=== PATIENT | male | born 1980 | race Caucasian/White ===

== ENCOUNTER 2021-02-01 22:22 | Emergency (ER) | payer OTHER, SELFPAY ==
--- NOTE | ~2021-02-01 | XR_ITS ---
EXAMINATION: XR CHEST CLINICAL INFORMATION: Shortness of breath COMPARISON: None TECHNIQUE: Frontal view of the chest was obtained. 11:07 PM FINDINGS: No significant abnormality is noted involving the heart, lungs, mediastinum, bony thorax or soft tissues. XR/XR chest 1V IMPRESSION: Unremarkable examination.
[2021-02-01 22:48] VITALS: BP 141/90; PULSE 109; RESP 16; TEMP 36.9; O2SAT 98; BMI 31.5
[2021-02-02 00:01] LABS: COVID-19 Test Negative (Negative); IDNOW Serial# 08D9AD1C
[2021-02-02 02:00] VITALS: BP 124/81; PULSE 77; RESP 18; O2SAT 99
--- NOTE | 2021-02-02 02:09 | ED.SOB ---
HPI - SOB/Dyspnea General Chief Complaint: Dyspnea Stated Complaint: Covid symptoms Time Seen by Provider: 02/02/21 02:09 Source: patient Mode of arrival: ambulatory Limitations: no limitations History of Present Illness HPI Narrative: wheezing, coughing, phlegm, rhinorrhea for 4 days MD elicited complaint: shortness of breath and cough Onset (ago): day(s) Context: recent illness Timing: constant Severity: mild Related Data Allergies Allergy/AdvReac Type Severity Reaction Status Date / Time Sulfa (Sulfonamide Allergy Unknown SWELLING Unverified 01/27/20 15:21 Antibiotics) [SULFA (SULFONAMIDE ANTIBIOTICS)] Sulfacet-R Allergy Unknown Uncoded 01/18/20 00:00 Review of Systems Constitutional: Constitutional: Reports no additional constitutional complaints Eyes: Eyes: Reports no additional eye complaints ENT: Denies dizziness Cardiovascular: Cardiovascular: Reports no additional cardiovascular complaints Respiratory: Respiratory: Reports as per HPI Gastrointestinal: Gastrointestinal: Reports no additional gastrointestinal complaints Musculoskeletal: Musculoskeletal: Reports no additional musculoskeletal complaints Integumentary/Breasts: Skin/Breast: Denies rash Neurologic: Reports system reviewed and no additional complaints, except as documented, Denies dizziness and Denies Sensory deficit (Neuro) Psychiatric: Psychiatric: Denies anxiety [facility] Social History Social History Patient Tobacco Use Status: Current everyday Tobacco user Use of substances other than those prescribed or required for medical reasons: No Advance Directives: No Physical Exam Vital Signs: Vital Signs: Last Vital Signs Temp 98.5 F 02/01/21 22:48 Pulse 87 02/02/21 03:42 Resp 16 02/02/21 03:42 BP 128/74 02/02/21 03:42 Pulse Ox 98 02/02/21 03:42 Body Mass Index 31.5 Const: General: healthy appearing Nutritional Appearance: average body habitus Orientation/consciousness: oriented to person and patient oriented x3 Limitations: no limitations HENMT: Head: Yes normal to inspection Ears: external ears normal General nose exam: Normal external nose present Mouth: Normal oral and palatal mucosa present and oropharynx normal Throat: Yes posterior oropharynx normal Eyes: General: appearance normal, both eyes and all related structures Neck: Other: supple Neck: Yes normal visual inspection Chest: Chest palpation & inspection: normal inspection of the chest Resp: Other: diffuse wheezing Cardio: Jugular venous distension: no JVD Rate: regular rate Rhythm: regular rhythm Heart sounds: S1 normal heart sound present and S2 normal heart sound present GI: Inspection: Yes normal to inspection Palpation (GI): Soft to palpation, nontender and No hepatosplenomegaly present Auscultation: normal bowel sounds : General: Yes no CVA tenderness Back/Spine/Pelvis: Back: no CVA tenderness Skin: General skin exam: no rashes or lesions noted Neuro: General: oriented to person and patient oriented x3 Cranial nerves: Yes CN's II-XII intact bilaterally Motor exam (neuro): 5/5 motor strength present throughout Sensory Exam: No Sensory deficit (Neuro) Extrem: General: Yes normal to inspection Psych: Appearance: grossly normal Course Reevaluation(s) Reevaluation #1: patient COVID negative, xray negative, normal EKG and troponin. Impression is viral uri will dc home Time: 04:15 MDM - SOB/Dyspnea Lab Data Result diagrams: 02/02/21 03:36 02/02/21 03:36 Labs: Lab Results 02/01/21 02/02/21 02/02/21 Range/Units 23:30 03:36 03:36 WBC 4.8 (4.8-10.8) X10*3/uL RBC 5.23 (4.60-5.80) X10*6/uL Hgb 15.0 (14.0-18.0) g/dl Hct 45.2 (42-52) % MCV 86.4 (80-98) fL MCH 28.7 (27.0-33.0) pg MCHC 33.2 (31.0-36.0) g/dl RDW 13.2 (11.0-16.0) % Plt Count 141 L (160-400) X10*3/uL MPV 10.6 (9.4-12.4) fL Immature Gran % (Auto) 0.2 (0.0-0.4) % Neut % (Auto) 36.3 L (45-73) % Lymph % (Auto) 46.8 H (20-40) % [place] % (Auto) 11.7 H (2-11) % Eos % (Auto) 4.6 H (0-4) % Baso % (Auto) 0.4 (0-2) % Lymph # (Auto) 2.2 (1.2-4.9) X10*3/uL [place] # (Auto) 0.6 (0.1-1.2) X10*3/uL Eos # (Auto) 0.2 (0.0-0.4) X10*3/uL Baso # (Auto) 0.0 (0.0-0.2) X10*3/uL Abs Immat Gran (auto) 0.01 (0.00-0.03) X10*3/uL Absolute Neuts (auto) 1.7 L (2.0-8.3) X10*3/uL Absolute Nucleated RBC 0.000 (0.0-0.012) X10*3/uL Nucleated RBC % (auto) 0.0 (0.0-0.2) /100WBC Sodium 142 (135-145) mmol/L Potassium 4.0 (3.3-5.1) mmol/L Chloride 104 (96-108) mmol/L Carbon Dioxide 29 (22-29) mmol/L Anion Gap 13 (12-20) BUN 11 (9-16) mg/dL Creatinine 1.07 (0.5-1.4) mg/dL Estim Creat Clear Calc 110.8 Estimated GFR > 60 Random Glucose 107 (60-115) mg/dL Calcium 9.0 (8.4-10.2) mg/dL Troponin I High Sens (<3.5-35.0) ng/L B-Natriuretic Peptide (<100) pg/mL COVID-19 (DEYSI) Negative (Negative) COVID-19 Clin Com See Note 02/02/21 Range/Units 03:36 WBC (4.8-10.8) X10*3/uL RBC (4.60-5.80) X10*6/uL Hgb (14.0-18.0) g/dl Hct (42-52) % MCV (80-98) fL MCH (27.0-33.0) pg MCHC (31.0-36.0) g/dl RDW (11.0-16.0) % Plt Count (160-400) X10*3/uL MPV (9.4-12.4) fL Immature Gran % (Auto) (0.0-0.4) % Neut % (Auto) (45-73) % Lymph % (Auto) (20-40) % [place] % (Auto) (2-11) % Eos % (Auto) (0-4) % Baso % (Auto) (0-2) % Lymph # (Auto) (1.2-4.9) X10*3/uL [place] # (Auto) (0.1-1.2) X10*3/uL Eos # (Auto) (0.0-0.4) X10*3/uL Baso # (Auto) (0.0-0.2) X10*3/uL Abs Immat Gran (auto) (0.00-0.03) X10*3/uL Absolute Neuts (auto) (2.0-8.3) X10*3/uL Absolute Nucleated RBC (0.0-0.012) X10*3/uL Nucleated RBC % (auto) (0.0-0.2) /100WBC Sodium (135-145) mmol/L Potassium (3.3-5.1) mmol/L Chloride (96-108) mmol/L Carbon Dioxide (22-29) mmol/L Anion Gap (12-20) BUN (9-16) mg/dL Creatinine (0.5-1.4) mg/dL Estim Creat Clear Calc Estimated GFR Random Glucose (60-115) mg/dL Calcium (8.4-10.2) mg/dL Troponin I High Sens < 3.5 (<3.5-35.0) ng/L B-Natriuretic Peptide < 10 (<100) pg/mL COVID-19 (DEYSI) (Negative) COVID-19 Clin Com Imaging Data Chest x-ray: Radiologist's impression: IMPRESSION: Unremarkable examination. Discharge Plan Discharge Clinical Impression: Upper respiratory infection Qualifiers: URI type: unspecified viral URI Qualified Code(s): J06.9 - Acute upper respiratory infection, unspecified Patient Disposition: Home, Self-Care Instructions: Upper Respiratory Infection (ED) Referrals: Physician,None [Primary Care Provider] - 1 week
[2021-02-02 03:01] VITALS: PULSE 73; O2SAT 99
[2021-02-02] MEDS: Albuterol/Iprat 2.5/0.5MG 3 ML AMPUL.NEB INHALE (03:01)
[2021-02-02 03:42] VITALS: BP 128/74; PULSE 87; RESP 16; O2SAT 98
[2021-02-02 03:43] LABS: MANUAL DIFF FLAG NO
[2021-02-02 03:54] LABS: Basophils Percent Auto 0.4 % (0-2); Eosinophils Absolute Auto 0.2 X10*3/uL (0.0-0.4); Eosinophils Percent Auto 4.6 % (0-4); Hematocrit 45.2 % (42-52); Imm Gran Abs Auto 0.01 X10*3/uL (0.00-0.03); Imm Gran Pct Auto 0.2 % (0.0-0.4); Lymphocytes Absolute Auto 2.2 X10*3/uL (1.2-4.9); Lymphocytes Percent Auto 46.8 % (20-40); Mean Corpuscular HGB Conc 33.2 g/dl (31.0-36.0); Mean Corpuscular Hemoglobin 28.7 pg (27.0-33.0); Mean Corpuscular Volume 86.4 fL (80-98); Mean Platelet Volume 10.6 fL (9.4-12.4); Monocytes Absolute Auto 0.6 X10*3/uL (0.1-1.2); Monocytes Percent Auto 11.7 % (2-11); Neutrophils Absolute Auto 1.7 X10*3/uL (2.0-8.3); Neutrophils Percent Auto 36.3 % (45-73); Platelet Count 141 X10*3/uL (160-400); Red Blood Count 5.23 X10*6/uL (4.60-5.80); Red Cell Distribution Width 13.2 % (11.0-16.0); White Blood Count 4.8 X10*3/uL (4.8-10.8)
[2021-02-02 03:55] LABS: Anion Gap 13 (12-20); Blood Urea Nitrogen 11 mg/dL (9-16); Carbon Dioxide 29 mmol/L (22-29); Chloride 104 mmol/L (96-108); Creatinine Clr Calc Pharmacy 110.8; Estimated Glomerular Filt Rate > 60; Glucose Random 107 mg/dL (60-115); Sodium 142 mmol/L (135-145)
[2021-02-02 04:00] VITALS: BP 128/74; PULSE 84; RESP 16; O2SAT 98
[2021-02-02 04:03] LABS: B Type Natriuretic Peptide < 10 pg/mL (<100); Troponin-I High Sensitivity < 3.5 ng/L (<3.5-35.0)
== END 2021-02-02 04:30 | disposition home or self-care (01) ==
PROVIDERS: Emergency Provider Emergency Medicine
DX: J06.9 Acute upper respiratory infection, unspecified (principal); R06.02 Shortness of breath; R05 Cough; F17.200 Nicotine dependence, unspecified, uncomplicated; Z20.822 Contact with and (suspected) exposure to COVID-19; Z71.6 Tobacco abuse counseling
CPT/HCPCS: 36415; 71045; 80048; 83880; 84484; 85025; 87635; 94640; 99284

== ENCOUNTER 2023-04-16 12:19 | Emergency (ER) | payer OTHER, SELFPAY ==
--- NOTE | ~2023-04-16 | CT_ITS ---
EXAMINATION: CT ABDOMEN AND PELVIS WITHOUT CONTRAST CLINICAL INFORMATION: Left lower quadrant tenderness. COMPARISON: Abdominal ultrasound 01/04/2020. TECHNIQUE: Multidetector volumetric imaging was performed from the superior aspect of the liver through the pubic symphysis. Sagittal and coronal reformatted images were obtained on the technologist's workstation. This CT examination was performed using dose optimization techniques as appropriate, variously including the following: *Automated exposure control *Adjustment of mA and/or kV according to patient size (this includes techniques or standardized protocols for targeted exams where dose is matched to indication/reason for exam; i.e. extremities or head) *Use of iterative reconstruction technique DLP: 724 mGy-cm FINDINGS: The lack of intravenous contrast limits evaluation of the solid visceral organs including the liver, spleen, pancreas, and kidneys. LUNG BASES: No focal consolidation or pleural effusion. Small calcified granuloma in the right lower lobe. LIVER, GALLBLADDER, AND BILIARY TREE: Decreased attenuation of the liver parenchyma suggestive of hepatic steatosis. Otherwise, the liver is normal in size and shape without discrete focal lesion in this limited noncontrast examination. Cholecystectomy. No biliary ductal dilatation. PANCREAS: Unremarkable. SPLEEN: Unremarkable. ADRENAL GLANDS: Unremarkable. KIDNEYS AND URETERS: The kidneys are normal in size, shape, and attenuation. No hydronephrosis, hydroureter, or calculi seen. No perinephric stranding. BLADDER: Unremarkable. GASTROINTESTINAL TRACT: The stomach and the small bowel are nondilated. Dilated appendix measuring up to 1 cm in diameter with trace periappendiceal fat stranding. No pericolonic fat stranding or free fluid. No evidence of bowel obstruction. ABDOMINAL WALL: Small fat-containing left inguinal hernia. LYMPH NODES: No lymphadenopathy. VASCULAR: Normal caliber abdominal aorta. PELVIC VISCERA: Unremarkable. OSSEOUS STRUCTURES: No acute or aggressive appearing osseous findings. CT/CT abdomen pelvis wo IV con IMPRESSION: 1. Dilated appendix with trace periappendiceal fat stranding concerning for acute appendicitis in the appropriate clinical context. 2. Hepatic steatosis.
[2023-04-16 13:39] VITALS: BP 130/85; PULSE 80; RESP 18; TEMP 36.6; O2SAT 97; BMI 35.2
--- NOTE | 2023-04-16 13:46 | ED.ABDPAIN ---
HPI - Abdominal Pain General Chief Complaint: Abdominal Pain Stated Complaint: Abdominal Pain Time Seen by Provider: 04/16/23 22:01 Source: patient Mode of arrival: ambulatory Limitations: no limitations History of Present Illness HPI narrative: Patient is a 43-year-old male with history of cholecystectomy presenting to the emergency department with complaint of abdominal bloating for the past 1-2 months. States last night his pain increased. Denies nausea, vomiting, constipation. Reports frequent diarrhea ever since cholecystectomy. Denies hematochezia or melena. Denies dysuria, frequency or other urinary symptoms. Denies back or flank pain. Denies fevers. States pain increased after drinking but does not worsen with eating. MD elicited complaint: abdominal pain Onset (ago): month(s) Pain Consistency: colicky Location: LLQ Severity: moderate Quality: aching Radiation: none Migration to: no migration Exacerbating factors: other (drinking) Relieving factors: nothing Associated symptoms: denies other symptoms Related Data Previous Rx's Medication Instructions Recorded amoxicillin 500 mg-potassium 1 tab PO BID #14 tabs 04/17/23 clavulanate 125 mg tablet (Augmentin) Allergies Allergy/AdvReac Type Severity Reaction Status Date / Time Sulfa (Sulfonamide Allergy Unknown SWELLING Unverified 01/27/20 15:21 Antibiotics) [SULFA (SULFONAMIDE ANTIBIOTICS)] Sulfacet-R Allergy Unknown Uncoded 01/18/20 00:00 Review of Systems Review of Systems As per HPI. Yes all other systems are reviewed and are negative Constitutional: Reports as per HPI [facility] Social History Social History Patient Tobacco Use Status: Current everyday Tobacco user Advance Directives: No Advance Directives Information Provided: No Physical Exam ED Vital Signs: Vital Signs - 24 hr 04/16/23 13:39 04/16/23 19:39 04/16/23 23:44 Temperature 97.8 F 97.9 F 96.9 F Pulse Rate 80 85 72 Respiratory Rate 18 12 20 Blood Pressure 130/85 147/95 H 137/79 Pulse Oximetry 97 98 98 Oxygen Delivery Method Room Air Room Air Room Air BMI result Body Mass Index 35.2 Vital signs have been reviewed and appear to be correct. Blood pressure elevated. Heart rate normal. Respiratory rate normal. Temperature normal. Oxygen saturation normal. Const General: cooperative, healthy appearing and no acute distress Orientation/consciousness: oriented to person, oriented to place, oriented to time and patient oriented x3 Limitations: no limitations HENMT Head: Yes normocephalic and Yes atraumatic Ears: external ears normal General nose exam: Normal external nose present Face and sinus: Yes face symmetric Mouth: oropharynx normal and moist mucous membranes Throat: Yes uvula midline Eyes Pupils: Equal, round and reactive pupils present Neck Neck: Yes normal visual inspection and Yes supple Resp Effort & Inspection: normal respiratory effort and able to speak in complete sentences Auscultation: clear to auscultation bilaterally Cardio Rate: regular rate Rhythm: regular rhythm Heart sounds: S1 normal heart sound present and S2 normal heart sound present GI Inspection: Yes normal to inspection Palpation (GI): Soft to palpation, Tenderness to palpation present (GI) in the LLQ, no guarding and No Rebound tenderness present Auscultation: normoactive bowel sounds General: Yes no CVA tenderness Back/Spine/Pelvis Back: no CVA tenderness Skin General skin exam: elasticity normal and turgor normal Neuro General: oriented to person, oriented to place, oriented to time, patient oriented x3, moves all extremities, no focal motor deficits and CN's II-XI intact bilaterally Cranial nerves: Yes Equal, round and reactive pupils present Cognition (Neuro): normal cognition Extrem General: Yes full ROM, Yes no pedal edema and Yes no calf tenderness Psych Mental Status: mental status grossly normal Affect: normal affect Thought process: Normal thought process present Course Course Course Narrative: This is an RME: Additional HPI, ROS, PE not included below will be deferred to primary provider. This is a 43-year-old male presenting to the emergency department complaints of upper abdominal pain since last night. Patient also endorses some bloating. No nausea or vomiting. He had his gallbladder removed. No other abdominal surgeries. He is afebrile, nontoxic-appearing, abdomen is soft nontender. He does not drink alcohol Plan: Labs, UA Medical Decision Making Medical Decision Making MDM Narrative: Patient is a 43-year-old male with history of cholecystectomy presenting to the emergency department with complaint of abdominal bloating for the past 1-2 months. On exam patient is awake, A+Ox3, VS WNL, afebrile, normal neurological exam without focal deficits, physical exam findings as above. Given reported symptoms and physical exam findings, initial differential includes diverticulitis, appendicitis, constipation. Unlikely bowel obstruction. Labs notable for no leukocytosis, no anemia, no significant electrolyte abnormalities, mildly elevated ALT, T bili normal, CRP elevated. No evidence of infection on UA. CT notable for dilated appendix with trace perippendiceal fat stranding concerning for acute appendicitis. My interpretation is in agreement with the radiologist's interpretation. Spoke with Dr. Perdomo over the telephone. She recommends treatment with augmentin 500mg BID x 7 days for early appendicitis and patient can follow up outpatient with surgery. Strict return precautions discussed with patient. Patient verbalized understanding of and agreement with plan. Differential Diagnosis Differential Diagnoses: The differential diagnosis associated with the presentation includes As per MDM. Admission/Observation Consideration of admission/observation: Escalation of care including admission/observation considered Consult Healthcare Provider Management of the patient was discussed with: Rebeamer (Dr. Perdomo) Lab Data [facility] Lab Attestation statement: I reviewed the patient's lab results. As per MDM. 04/16/23 15:48 04/16/23 15:48 Labs: Lab Results 04/16/23 Range/Units 15:48 WBC 9.3 (4.8-10.8) X10*3/uL RBC 5.38 (4.60-5.80) X10*6/uL Hgb 14.9 (14.0-18.0) g/dl Hct 46.3 (42.0-52.0) % MCV 86.1 (80.0-98.0) fL MCH 27.7 (27.0-33.0) pg MCHC 32.2 (31.0-36.0) g/dl RDW 13.2 (11.0-16.0) % Plt Count 195 (160-400) X10*3/uL MPV 10.3 (9.4-12.4) fL Immature Gran % (Auto) 0.2 (0.0-0.4) % Neut % (Auto) 68.4 (45-73) % Lymph % (Auto) 24.8 (20-40) % [place] % (Auto) 5.0 (2-11) % Eos % (Auto) 1.4 (0-4) % Baso % (Auto) 0.2 (0-2) % Lymph # (Auto) 2.3 (1.2-4.9) X10*3/uL [place] # (Auto) 0.5 (0.1-1.2) X10*3/uL Eos # (Auto) 0.1 (0.0-0.4) X10*3/uL Baso # (Auto) 0.0 (0.0-0.2) X10*3/uL Abs Immat Gran (auto) 0.02 (0.00-0.03) X10*3/uL Absolute Neuts (auto) 6.4 (2.0-8.3) x10*3/uL Absolute Nucleated RBC 0.000 (0.0-0.012) X10*3/uL Nucleated RBC % (auto) 0.0 (0.0-0.2) /100WBC Sodium 139 (135-145) mmol/L Potassium 4.1 (3.3-5.1) mmol/L Chloride 101 (96-108) mmol/L Carbon Dioxide 29 (22-29) mmol/L Anion Gap 13 (12-20) BUN 11 (9-16) mg/dL Creatinine 0.87 (0.5-1.4) mg/dL Estim Creat Clear Calc 139.5 Estimated GFR > 60 Random Glucose 97 (60-115) mg/dL Calcium 9.4 (8.4-10.2) mg/dL Total Bilirubin 1.0 (0.0-1.0) mg/dL Direct Bilirubin 0.3 (0.0-0.5) mg/dL AST 33 (5-37) U/L ALT 67 H (0-40) U/L Alkaline Phosphatase 109 (39-117) U/L C-Reactive Protein 1.88 H (< or = 0.50) mg/dL Total Protein 7.8 (6.5-8.0) g/dL Albumin 4.5 (3.5-5.0) g/dL Lipase 9 (8-78) U/L Urine Color Yellow Urine Appearance Clear Urine pH 5.0 (5.0-9.0) Ur Specific [place] 1.025 (1.005-1.025) Urine Protein Negative (Neg-Trace) mg/dL Urine Glucose (UA) Negative (Negative) mg/dL Urine Ketones Negative (Negative) mg/dL Urine Blood Negative (Negative) Urine Nitrite Negative (Negative) Ur Leukocyte Esterase Negative (Negative) Independent Interpretation I performed an independent interpretation of an: CT Scan Interpretation: concerning for acute appendicitis Radiology Impression Discussion of test interpretation with radiology: I have reviewed the radiologist's reading. Radiologist Impression: CT/CT abdomen pelvis wo IV con IMPRESSION: 1. Dilated appendix with trace periappendiceal fat stranding concerning for acute appendicitis in the appropriate clinical context. 2. Hepatic steatosis. External Record Review External record reviewed: Inpatient record, Office record and Outpatient record Prescription Management I considered prescription management with: Antibiotic Discharge Plan Discharge Clinical Impression: Abdominal pain Patient Disposition: Home, Self-Care Instructions: Amoxicillin/Clavulanate Potassium (By mouth), Abdominal Pain (ED) Additional Instructions: You were evaluated in the emergency department today for abdominal pain. Your CT scan showed evidence of possible appendicitis but your labs, vital signs, and physical exam were reassuring. You are being treated with a course of antibiotics, please complete the full course as prescribed. You are being referred to surgery for further evaluation and management of your symptoms. Please call their office tomorrow to schedule an appointment. Return to the emergency department if you develop worsening pain, fever 100.4? F or greater, vomiting, or any other concerning symptoms. Prescriptions: New amoxicillin-pot clavulanate [Augmentin] 500-125 mg tablet 1 tab PO BID Qty: 14 0RF Referrals: [facility] General Surgeons [Provider Group]
[2023-04-16 15:55] LABS: MANUAL DIFF FLAG NO
[2023-04-16 16:00] LABS: Basophils Percent Auto 0.2 % (0-2); Eosinophils Absolute Auto 0.1 X10*3/uL (0.0-0.4); Eosinophils Percent Auto 1.4 % (0-4); Hematocrit 46.3 % (42.0-52.0); Hemoglobin 14.9 g/dl (14.0-18.0); Imm Gran Abs Auto 0.02 X10*3/uL (0.00-0.03); Imm Gran Pct Auto 0.2 % (0.0-0.4); Lymphocytes Absolute Auto 2.3 X10*3/uL (1.2-4.9); Lymphocytes Percent Auto 24.8 % (20-40); Mean Corpuscular HGB Conc 32.2 g/dl (31.0-36.0); Mean Corpuscular Hemoglobin 27.7 pg (27.0-33.0); Mean Corpuscular Volume 86.1 fL (80.0-98.0); Mean Platelet Volume 10.3 fL (9.4-12.4); Monocytes Absolute Auto 0.5 X10*3/uL (0.1-1.2); Neutrophils Absolute Auto 6.4 x10*3/uL (2.0-8.3); Neutrophils Percent Auto 68.4 % (45-73); Platelet Count 195 X10*3/uL (160-400); Red Blood Count 5.38 X10*6/uL (4.60-5.80); Red Cell Distribution Width 13.2 % (11.0-16.0); White Blood Count 9.3 X10*3/uL (4.8-10.8)
[2023-04-16 16:01] LABS: Appearance Urine Clear; Color Urine Yellow; Glucose Urine UA Negative (Negative); Leukocyte Esterase Urine Negative (Negative); Nitrite Urine Negative (Negative); Specific Gravity - Urine 1.025 (1.005-1.025); Urine Blood Negative (Negative); Urine Ketones Negative (Negative); Urine Protein Negative (Neg-Trace)
[2023-04-16 16:17] LABS: Alanine Aminotransferase 67 U/L (0-40); Albumin Level 4.5 g/dL (3.5-5.0); Alkaline Phosphatase 109 U/L (39-117); Anion Gap 13 (12-20); Aspartate Amino Transferase 33 U/L (5-37); Bilirubin Direct 0.3 mg/dL (0.0-0.5); Blood Urea Nitrogen 11 mg/dL (9-16); Calcium 9.4 mg/dL (8.4-10.2); Carbon Dioxide 29 mmol/L (22-29); Chloride 101 mmol/L (96-108); Creatinine Clr Calc Pharmacy 139.5; Estimated Glomerular Filt Rate > 60; Glucose Random 97 mg/dL (60-115); Lipase 9 U/L (8-78); Potassium 4.1 mmol/L (3.3-5.1); Sodium 139 mmol/L (135-145); Total Protein 7.8 g/dL (6.5-8.0)
[2023-04-16 19:39] VITALS: BP 147/95; PULSE 85; RESP 12; TEMP 36.6; O2SAT 98
[2023-04-16 23:44] VITALS: BP 137/79; PULSE 72; RESP 20; TEMP 36.1; O2SAT 98
[2023-04-17 01:52] LABS: C Reactive Protein 1.88 mg/dL (< or = 0.50)
[2023-04-17 02:16] VITALS: BP 111/57; PULSE 77; RESP 16; TEMP 35.8; O2SAT 96
--- NOTE | 2023-04-17 02:45 | PC.NURSE ---
this rn assumed care of pt @ 2300. pt calm and cooperative. iv removed at discharge. pt ambulatory at discharge. pt provided with discharge packet pt verbalized understanding of discharge plan
== END 2023-04-17 02:48 | disposition home or self-care (01) ==
PROVIDERS: Physician Assistant Medical; Registered Nurse Emergency; Emergency Provider Emergency Medicine
DX: R10.32 Left lower quadrant pain (principal)
CPT/HCPCS: 36415; 74176; 80048; 80076; 81003; 83690; 85025; 86140; 99284

== ENCOUNTER 2023-04-17 13:16 | Outpatient (AMB) | payer OTHER, SELFPAY ==
--- NOTE | 2023-04-17 13:48 | MHC.OFFVIS ---
Intake Vital Signs 04/17/23 13:52 Height 5 ft 10 in Weight 243 lb 8 oz BMI 34.9 BP 146/77 H Blood Pressure Location Lt brachial Position Sitting Pulse 96 Intake Visit Reasons: possible appendicitis Intake Note: Pt c/o: onset Friday night, bloating, feels pressure, back pain, pain all over the abdomen mostly towards the top, nausea, denies vomit, diarrhea, constipation, on antibiotics [employer] Worker Required: No Accompanied by: Self / Same As Patient Allergies Sulfa (Sulfonamide Antibiotics) [SULFA (SULFONAMIDE ANTIBIOTICS)] Allergy (Unknown, Unverified 04/17/23 13:50) SWELLING HPI HPI Comments History of Present Illness Details 43-year-old male patient presenting with complaints of upper abdominal discomfort and bloating sensation starting on Friday04/15/2023. He was subsequently evaluated in emergency department and noted to have some tenderness in the lower quadrants. Laboratories revealed a normal WBC however CT revealed a marginally dilated gallbladder with some inflammatory changes surrounding this suggestive of early appendicitis. No fecalith was identified and no fluid collections could be appreciated. This was felt to be due to early appendicitis and patient subsequent discharge home on Augmentin p.o.. He took 1st dose this morning continues to feel some bloating and mild abdominal discomfort. He denies nausea, vomiting, fever or chills. Denies a previous history of similar pain. He is status post laparoscopic cholecystectomy several years ago (Dr. Abraham ). He tolerated the surgery well and denied any postoperative problems. COUNTS INCLUDE 234 BEDS AT THE [facility] Surgical History History of excision of pilonidal cyst History of cholecystectomy Social History Patient Tobacco Use Status: Current everyday Tobacco user Review of Systems Const All systems reviewed & are unremarkable except as noted in HPI and below Physical Exam Const General: cooperative and no acute distress Nutritional Appearance: well nourished Orientation/consciousness: patient oriented x3 Limitations: no limitations HEENT Head: Yes normocephalic and Yes atraumatic Ears: hearing grossly normal bilaterally Resp Effort & Inspection: normal respiratory effort, no audible wheezes, no cough and no respiratory distress Cardio Jugular venous distension: no JVD GI Inspection: Yes normal to inspection Palpation (GI): Soft to palpation and Tenderness to palpation present (GI) in the RUQ; not in the RLQ, not at McBurney's point, Mendieta's sign negative, obturator sign negative, with no rebound tenderness and Rovsing's sign negative Percussion: Yes normal to percussion Auscultation: normal bowel sounds Rectal Exam - Male: Yes deferred Skin Other: Warm, dry, no rash Neuro General: patient oriented x3 Extrem General: Yes no clubbing, cyanosis or edema Assessment & Plan Assessment & Plan (1) Abdominal pain: Code(s): R10.9 - Unspecified abdominal pain Qualifiers: Abdominal location: right upper quadrant Qualified Code(s): R10.11 - Right upper quadrant pain Plan 43-year-old male patient with a prior history of laparoscopic cholecystectomy now presenting with complaints of abdominal pain in the right upper quadrant with abdominal bloating. Workup in the emergency department revealed a normal WBC but CT revealed slightly enlarged appendix with inflammatory changes suggestive of early appendicitis. He was discharged home on Augmentin 500-125 mg 1 tab p.o. b.i.d.. He started taking the medication this morning. I discussed the findings on CT and reviewed the images with him in detail. Options include continuing the antibiotics as previously prescribed verses an elective laparoscopic appendectomy as a short-stay surgery. After discussing the risks, alternatives and benefits, he wishes to continue with the antibiotics. He will follow up in 1 week but should call sooner if the symptoms worsen. Coding Level of Care Code New Pt Level 4 (65417) Diagnoses Right upper quadrant abdominal pain R10.11 Abdominal location: right upper quadrant
[2023-04-17 13:52] VITALS: BP 146/77; PULSE 96; BMI 34.9
== END 2023-04-17 14:02 | disposition home or self-care (01) ==
PROVIDERS: Visit Provider Surgery
DX: R10.11 Right upper quadrant pain (principal)
CPT/HCPCS: 99204

== ENCOUNTER → 2023-04-17 13:16 | Outpatient (BNVA) | payer OTHER, SELFPAY | PROVIDERS: Visit Provider Surgery | DX: R10.11 Right upper quadrant pain (principal) | CPT/HCPCS: 99202 ==

== ENCOUNTER → 2024-11-23 09:12 | Outpatient (BNVA) | payer OTHER, SELFPAY | PROVIDERS: Visit Provider Physician Assistant Medical | DX: S61.313A Laceration without foreign body of left middle finger with damage to nail, initial encounter (principal); W22.8XXA Striking against or struck by other objects, initial encounter; Z23 Encounter for immunization | CPT/HCPCS: 12001; 90715; 99204 ==

== ENCOUNTER 2024-11-24 12:52 | Outpatient (REF) | payer OTHER, SELFPAY ==
--- NOTE | ~2024-11-24 | XR_ITS ---
CLINICAL HISTORY: M79.642 - Pain in left hand Left hand three views Comparison: None provided Findings: Comminuted nondisplaced 3rd distal phalanx fracture. No other acute bony abnormality noted. Old 5th metacarpal fracture deformity. Impression: Third distal phalanx fracture This document has been electronically signed by: Sorin Stewart MD on 11/24/2024 19:17:45
== END 2024-11-24 12:53 | disposition home or self-care (01) ==
LOC: HO.HOSX 12:52
DX: S62.633B Displaced fracture of distal phalanx of left middle finger, initial encounter for open fracture (principal); W22.8XXA Striking against or struck by other objects, initial encounter; Y99.0 Civilian activity done for income or pay
CPT/HCPCS: 73130; 99202

== ENCOUNTER 2024-11-24 12:52 | Outpatient (AMB) | payer OTHER, SELFPAY ==
--- NOTE | 2024-11-24 12:58 | A.OFFVIS_ITS ---
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 Per [employer] notes, patient hit his left hand against a metal plow frame, this guides the plow to where it has to be, resulting in a laceration to the 3rd left hand digit. Reports tenderness in the entire left hand 3rd digit. He had sutures done on 11/23/24 at [facility]. Laceration appears macerated. He reports tingling when he palpitates his finger. Needs to discuss work status. 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 Per Work [employer] notes, patient hit his left hand against a metal plow frame, this guides the plow to where it has to be, resulting in a laceration to the 3rd left hand digit. Reports tenderness in the entire left hand 3rd digit. He had sutures done on 11/23/24 at [facility]. Laceration appears macerated. He reports tingling when he palpitates his finger. Needs to discuss work status. 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 Neuro: Diminished sensation of the tip of the left middle finger Normal sensation of the tips of all other digits of the left hand at this time Vascular: Cap refill brisk Pain: Tenderness to gentle palpation about the left middle finger distal aspect ROM: Patient is able to flex and extend all other digits of the left hand fully and without difficulty Range of motion of the left middle finger DIP joint is not tested due to presence of fracture Skin: Complex laceration involving the distal aspect of the left middle finger just proximal to the nail bed noted There does appear to be some maceration of the area, however there is no erythema, drainage, or other evidence of infection General: No ecchymosis, erythema, or evidence of infection. Psych: Appears grossly normal Affect normal Attitude cooperative Results Reviewed Results Reviewed: X-rays obtained in the office today and independently reviewed by me, Alejandro Swann PA-C, demonstrate displaced, comminuted fracture of the distal phalanx of the left middle finger. Assessment & Plan Assessment & Plan (1) Laceration of left middle finger: Onset Date: ~11/23/24 Comment: (WC injury: Left hand dominant trim mechanic on 11/23/24 sustained laceration to posterior/distal aspect of Lt 3rd digit at base of nailbed, nail matrix intact with slight lifting. Seen at [facility] - 4 simple sutures placed.) Code(s): S61.213A - Laceration without foreign body of left middle finger without damage to nail, initial encounter Category: Medical (2) Open fracture of distal phalanx of left middle finger: Code(s): S62.633B - Displaced fracture of distal phalanx of left middle finger, initial encounter for open fracture Category: Medical Plan 1. Open fracture of left middle finger distal phalanx Date of injury 11/23/2024 Patient is educated about this injury Patient is educated about the typical recovery course At this time, antibiotics were switched to Augmentin to provide broad-spectrum coverage against infection Patient is amenable to this plan Patient is provided with a fingertips splint to prevent bending at the DIP joint of the left middle finger Patient should keep laceration site clean, dry, intact at all times Daily dressing changes as needed Follow-up in 1 week with repeat x-rays, sooner with any acute concerns Orders: Orders XR hand LT min 3V 11/24/24 M79.642 - Pain in left hand Medications: New amoxicillin-pot clavulanate 875-125 mg 1 tab PO BID 20 tabs 0RF 10 days Coding Level of Care Code New Pt Level 3 (62809) Diagnoses Laceration of left middle finger S61.213A Open fracture of distal phalanx of left middle finger S62.633B
== END 2024-11-24 14:20 | disposition home or self-care (01) ==
DX: S61.213A Laceration without foreign body of left middle finger without damage to nail, initial encounter (principal); S62.633B Displaced fracture of distal phalanx of left middle finger, initial encounter for open fracture
CPT/HCPCS: 99203

== ENCOUNTER → 2024-11-24 13:18 | Outpatient (BNV) | payer OTHER, SELFPAY | PROVIDERS: Visit Provider Radiology Diagnostic Radiology | DX: M79.642 Pain in left hand (principal); Z04.2 Encounter for examination and observation following work accident | CPT/HCPCS: 73130 ==

== ENCOUNTER 2024-11-30 09:47 | Outpatient (AMB) | payer OTHER, SELFPAY ==
--- NOTE | 2024-11-30 10:15 | A.OFFVIS_ITS ---
Vital Signs 11/30/24 10:20 Height 5 ft 10 in Weight 250 lb BMI 35.9 Intake Visit Reasons: OV-LT middle finger laceration f/u DOI 11/23/24-w/x Intake Note: Fabian is a 44 year old left hand dominant male who presents today with his son Al, for his follow up visit for his work related injury, DOI: 11/23/24. Per [employer] notes, patient hit his left hand against a metal plow frame, this guides the plow to where it has to be, resulting in a laceration to the 3rd left hand digit. Last seen with Marin Allen who prescribed ABX and advise patient to do daily changes. Currently states he has constant tingling in his left middle finger, and is not able to bend at his DIP. Allergies Sulfa (Sulfonamide Antibiotics) (SULFA (SULFONAMIDE ANTIBIOTICS)) Allergy (Unknown, Verified 11/30/24 10:19) SWELLING HPI HPI OV-LT middle finger laceration f/u DOI 11/23/24-w/x: Details: Fabian is a 44 year old left hand dominant man who returns for a left open middle finger distal phalanx fracture. He is S/P laceration & open fracture at his job, DOI: 11/23/24. He was seen by work connections & sutured. he was seen by JORDY Allen on 11/24/24 and placed on Augmentin. He reports that he has continued to take his Augmentin. The pain in his middle finger is improving. He still has some numbness to the tip of his finger. He continues to have some slight drainage from his laceration. He has been performing daily dressing changes at home. 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 Review of Systems Const All systems reviewed & are unremarkable except as noted in HPI and below Physical Exam Vital Signs: BMI result Body Mass Index 35.9 Const General: no acute distress and alert Orientation/consciousness: patient oriented x3 Neuro General: patient oriented x3 Extrem Other: Evaluation of Left Upper Extremity: The patient is alert, oriented, and in no acute distress Neuro: Diminished sensation to the tip of the middle finger Normal sensation to all other digits Vascular: Cap refill brisk ROM: Regarding his middle finger, He can actively flex at the MCP and PIP joints and bring them back into full extension Complex laceration involving the distal aspect of the left middle finger just proximal to the nail bed Mild drainage and maceration about the laceration site Radiographs: 3 views of the left hand from 11/24/24 were reviewed by me today in clinic. They show a displaced, comminuted fracture of the distal phalanx of the left middle finger. 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 Seen at [facility] - 4 simple sutures placed.) Code(s): S61.213A - Laceration without foreign body of left middle finger without damage to nail, initial encounter Category: Medical Plan Assessment & Plan: 1. Left middle finger distal phalanx fracture, open, comminuted, displaced S/P injury, DOI: 11/23/24 This is a work-related injury 2. Left middle finger laceration Involving the nail bed S/P injury, DOI: 11/23/24 This is a work-related injury I educated him about this condition I discussed operative and non-operative treatment options We will continue to manage this non-operatively I explained the signs and symptoms of infection, if the patient develops any new or worsening erythema, drainage, pain, or warmth they should contact the clinic or attend the ED. He will continue to take his PO Augmentin as instructed. I ordered an additional 5 days of Augmentin I discussed activity modifications, he is to lift nothing heavier than a cellphone for the next 4 weeks He will perform gentle MCP & PIP joint ROM exercises at home He should avoid any underwater activities at this time. He can wash this with soap & water in the shower. 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 He was given a note for work to remain out of work at least until his next appointment He will follow up next week for a wound check & suture removal, with X-rays, 3V L hand, OOP Scribed for Radha Martins MD by King Duncan, registered medical assistant, on 11/30/24 at 10:40 AM, EST. Medications: New amoxicillin-pot clavulanate 875-125 mg 1 tab PO Q12H 10 tabs 0RF Coding Level of Care Code Est Pt Level 3 (60429) Diagnoses Open fracture of distal phalanx of left middle finger S62.633B Laceration of left middle finger S61.213A
[2024-11-30 10:20] VITALS: BMI 35.9
== END 2024-11-30 11:02 | disposition home or self-care (01) ==
LOC: HO.HOS 09:47
PROVIDERS: Visit Provider Orthopaedic Surgery
DX: S62.633B Displaced fracture of distal phalanx of left middle finger, initial encounter for open fracture (principal); S61.213A Laceration without foreign body of left middle finger without damage to nail, initial encounter
CPT/HCPCS: 99213

== ENCOUNTER → 2024-11-30 09:47 | Outpatient (BNVA) | payer OTHER, SELFPAY | PROVIDERS: Visit Provider Orthopaedic Surgery | DX: S62.633B Displaced fracture of distal phalanx of left middle finger, initial encounter for open fracture (principal) | CPT/HCPCS: 99212 ==

== ENCOUNTER 2024-12-08 09:39 | Outpatient (AMB) | payer OTHER, SELFPAY ==
--- NOTE | 2024-12-08 09:48 | A.OFFVIS_ITS ---
Vital Signs 3 12/08/24 09:53 Height 5 ft 10 in Weight 250 lb BMI 35.9 Intake Visit Reasons: OV-LT MF laceration f/u DOI 11/23/24-w/xrays Intake Note: Fabian is a 44 year old left hand dominant male who presents today, for his follow up visit for his work related injury, DOI: 11/23/24 . Currently states has been washing his finger and keeping it clean. He has mild pain and one of the stitches are no longer holding on to his skin. He also has tingling and a little numbness and still is not able to bend at his DIP. States he continues to take his ABX. Allergies Sulfa (Sulfonamide Antibiotics) (SULFA (SULFONAMIDE ANTIBIOTICS)) Allergy (Unknown, Verified 12/08/24 09:52) SWELLING HPI HPI OV-LT MF laceration f/u DOI 11/23/24-w/xrays: Details: Fabian is a 44 year old left hand dominant man who returns for a left open middle finger distal phalanx fracture. He is S/P laceration & open fracture at his job, DOI: 11/23/24. He was seen by work connections & sutured. he was seen by JORDY Allen on 11/24/24 and placed on Augmentin. The pain in his middle finger is improving. He still has some numbness to the tip of his finger, and he is not able to bend at the DIP joint. He has been performing daily dressing changes at home and says he has only a few days of Abx remaining. 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 All sutures removed and Steri-Strips applied Diminished sensation to the tip of the middle finger somewhat improved from prior, intact sensation to the pad of the finger Normal sensation to all other digits ROM: Regarding his middle finger, He can actively flex at the MCP and PIP joints and bring them back into full extension 0-90 degree ROM at the MCP & PIP joints, with encouragement Complex laceration involving the distal aspect of the left middle finger just proximal to the nail bed No drainage and improving maceration about the laceration site Radiographs: 3 views of the left hand were taken and viewed by me today in clinic. They show a displaced, comminuted fracture of the distal phalanx of the left middle finger with satisfactory fracture alignment Psych Appearance: grossly normal Affect: normal affect Attitude: cooperative Assessment & Plan Assessment & Plan (1) Open fracture of distal phalanx of left middle finger: Code(s): S62.633B - Displaced fracture of distal phalanx of left middle finger, initial encounter for open fracture Category: Medical (2) Laceration of left middle finger: Onset Date: ~11/23/24 Comment: (WC injury: Left hand dominant jeep mechanic on 11/23/24 sustained laceration to posterior/distal aspect of Lt 3rd digit at base of nailbed, nail matrix intact with slight lifting. Seen at [facility] - 4 simple sutures placed.) Code(s): S61.213A - Laceration without foreign body of left middle finger without damage to nail, initial encounter Category: Medical Plan Assessment & Plan: 1. Left middle finger distal phalanx fracture, open, comminuted, displaced S/P injury, DOI: 11/23/24 This is a work-related injury 2. Left middle finger laceration Involving the nail bed S/P injury, DOI: 11/23/24 This is a work-related injury I educated him about this condition We are managing this conservatively in he appears to be doing well. I explained the signs and symptoms of infection He will continue to take his Abx as instructed. I discussed activity modifications, he is to lift nothing heavier than a cellphone for the next 3 weeks. He is to avoid any heavy impact activities or falls for the next 6-8 weeks He will perform gentle MCP & PIP joint ROM exercises at home He should avoid any underwater activities for the next 5 days. He can wash this with soap & water in the shower. He will apply daily dressing changes at home He will continue to wear his finger splint when out of the house I explained the effects of smoking on wound/bone healing. They expressed understanding. 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 He was given a note for work to remain out of work for the next 2 weeks. He can return to light duty with a 3lb weight limit, effective 12/21/24 He will follow up in 4 weeks for a wound check, and with new radiographs. Scribed for Radha Martins MD by King Duncan, biomedical field service engineer, on 12/08/24 at 9:55 AM, EST. Orders: Orders 2 XR hand LT min 3V Today M79.642 - Pain in left hand Coding Level of Care Code Est Pt Level 3 (78084) Diagnoses Open fracture of distal phalanx of left middle finger S62.633B Laceration of left middle finger S61.213A
[2024-12-08 09:53] VITALS: BMI 35.9
== END 2024-12-08 10:38 | disposition home or self-care (01) ==
LOC: HO.HOS 09:39
PROVIDERS: Visit Provider Orthopaedic Surgery
DX: S62.633B Displaced fracture of distal phalanx of left middle finger, initial encounter for open fracture (principal); S61.213A Laceration without foreign body of left middle finger without damage to nail, initial encounter
CPT/HCPCS: 99213

== ENCOUNTER → 2024-12-08 09:39 | Outpatient (BNVA) | payer OTHER, SELFPAY | PROVIDERS: Visit Provider Orthopaedic Surgery | DX: M79.642 Pain in left hand (principal); S62.633B Displaced fracture of distal phalanx of left middle finger, initial encounter for open fracture | CPT/HCPCS: 99212 ==

== ENCOUNTER → 2024-12-08 09:41 | Outpatient (BNV) | payer OTHER, SELFPAY | PROVIDERS: Visit Provider Radiology Diagnostic Radiology | DX: S62.663 Nondisplaced fracture of distal phalanx of left middle finger (principal) | CPT/HCPCS: 73130 ==

== ENCOUNTER 2024-12-09 08:06 | Outpatient (REF) | payer OTHER, SELFPAY ==
--- NOTE | ~2024-12-09 | XR_ITS ---
EXAMINATION: XR HAND 3 OR MORE VIEWS LEFT HISTORY: M79.642 - Pain in left hand COMPARISON: Comparison is made with the prior examination dated 11/24/2024. FINDINGS: Three views of the left hand are submitted. Osseous mineralization is normal. Again seen is a comminuted fracture of the distal phalanx of the middle finger. The prior study. Again seen is an old fracture deformity of the 5th metacarpal. The joint spaces are preserved. The soft tissues are unremarkable. XR/XR hand LT min 3V IMPRESSION: Comminuted fracture of the distal phalanx of the middle finger without change. Electronically signed by: Kenny Kendall MD 12/08/2024 10:15 AM EDT
== END 2024-12-09 08:07 | disposition home or self-care (01) ==
LOC: HO.HOSX 08:06
PROVIDERS: Visit Provider Orthopaedic Surgery
DX: M79.642 Pain in left hand (principal)
CPT/HCPCS: 73130

== ENCOUNTER 2025-01-05 10:41 | Outpatient (REF) | payer OTHER, SELFPAY ==
--- NOTE | ~2025-01-05 | XR_ITS ---
EXAMINATION: XR HAND, LEFT CLINICAL INFORMATION: M79.642 - Pain in left hand COMPARISON: December 08, 2024. TECHNIQUE: PA, lateral, and oblique views of the left hand. FINDINGS: No gross periosteal bone reaction or callus formation in the comminuted fractures the distal phalanx third digit. No subcutaneous emphysema. No metallic or radiopaque foreign body. Old traumatic deformity, fifth metacarpal with volar angulation. XR/XR hand LT min 3V IMPRESSION: No gross healing. Electronically signed by: Rahul Rivera MD 01/05/2025 03:05 PM EDT
== END 2025-01-05 10:42 | disposition home or self-care (01) ==
LOC: HO.HOSX 10:41
PROVIDERS: Visit Provider Orthopaedic Surgery
DX: Z02.79 Encounter for issue of other medical certificate (principal); S62.633D Displaced fracture of distal phalanx of left middle finger, subsequent encounter for fracture with routine healing; X58.XXXD Exposure to other specified factors, subsequent encounter
CPT/HCPCS: 73130; 99212

== ENCOUNTER 2025-01-05 14:33 | Outpatient (AMB) | payer OTHER, SELFPAY ==
[2025-01-05 14:44] VITALS: BMI 35.9
--- NOTE | 2025-01-05 14:44 | A.OFFVIS_ITS ---
Vital Signs 01/05/25 14:44 Height 5 ft 10 in Weight 250 lb BMI 35.9 Intake Visit Reasons: OV-LT MF laceration f/u DOI 11/23/24-w/xrays Intake Note: Fabian is a 44 year old left hand dominant man who presents for a follow up visit for his left open middle finger distal phalanx fracture S/P laceration & open fracture that occured at his job DOI: 11/23/24. Patient presents today for repeat x-rays and a wound check. States he has finish taking his ABX. States he has good sensation at the tip of his middle finger, and states his nail looks like a new one might be growing under. Denies numbness or tingling. At his last visit he was given a work note to return to work light duty. Allergies Sulfa (Sulfonamide Antibiotics) (SULFA (SULFONAMIDE ANTIBIOTICS)) Allergy (Unknown, Verified 01/05/25 14:50) SWELLING HPI HPI OV-LT MF laceration f/u DOI 11/23/24-w/xrays: Details: Fabian is a 44 year old left hand dominant man who returns for a left open middle finger distal phalanx fracture. He is S/P laceration & open fracture at his job, DOI: 11/23/24. He was seen by work connections & sutured. he was seen by JORDY Allen on 11/24/24 and placed on Augmentin. The pain in his middle finger is improving and his sensation is now more normal to the tip of his finger. 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 He says this is going well, he has been sorting boxed at his work. 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 Diminished sensation to the tip of the middle finger still improving from prior, intact sensation to the pad of the finger Normal sensation to all other digits ROM: Regarding his middle finger, He can actively flex at the MCP and PIP joints and bring them back into full extension 0-90 degree ROM at the MCP & PIP joints, with encouragement Minimal tenderness to firm palpation at the distal phalanx No drainage and improved maceration about the laceration site The skin over eponycheal fold is healing well Beginnings of a nail starting to push out past the eponycheal fold This does appear to be kicking the currently attached nail into flexion a bit Radiographs: 3 views of the left hand were taken and viewed by me today in clinic. 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 Seen at [facility] - 4 simple sutures placed.) Code(s): S61.213A - Laceration without foreign body of left middle finger without damage to nail, initial encounter Category: Medical Plan Assessment & Plan: 1. Left middle finger distal phalanx fracture, open, comminuted, displaced S/P injury, DOI: 11/23/24 This is a work-related injury 2. Left middle finger laceration Involving the nail bed S/P injury, DOI: 11/23/24 This is a work-related injury I educated him about this condition We are managing this conservatively in he appears to be doing well. I discussed activity modifications, he is to use his hand for lightweight activities only and slowly increase his weight limit as tolerated over the next few weeks. He is to avoid any heavy impact activities or falls for the next 2-4 weeks He will perform gentle MCP & PIP joint ROM exercises at home He will continue to wear his finger splint when out of the house I explained the effects of smoking on wound/bone healing. They expressed understanding. 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 He was given a note for work to return to full duty effective 01/10/25 He will follow up in 4 weeks for a wound check, and with new radiographs. He may cancel this if he is doing well Scribed for Radha Martins MD by King Duncan, medical accountant, on 01/05/25 at 2:55 PM, EST. Orders: Orders XR hand LT min 3V Today M79.642 - Pain in left hand Coding Level of Care Code Est Pt Level 3 (56040) Diagnoses Open fracture of distal phalanx of left middle finger S62.633B Laceration of left middle finger S61.213A
== END 2025-01-05 15:06 | disposition home or self-care (01) ==
LOC: HO.HOS 14:34
PROVIDERS: Visit Provider Orthopaedic Surgery
DX: S62.633B Displaced fracture of distal phalanx of left middle finger, initial encounter for open fracture (principal); S61.213A Laceration without foreign body of left middle finger without damage to nail, initial encounter
CPT/HCPCS: 99213

== ENCOUNTER → 2025-01-05 14:41 | Outpatient (BNV) | payer OTHER, SELFPAY | PROVIDERS: Visit Provider Radiology Diagnostic Radiology | DX: M79.642 Pain in left hand (principal); Z04.2 Encounter for examination and observation following work accident | CPT/HCPCS: 73130 ==

== ENCOUNTER 2025-02-08 12:21 | Outpatient (AMB) | payer OTHER, SELFPAY ==
--- NOTE | 2025-02-08 12:42 | MHC.OFFVIS ---
Vital Signs 02/08/25 12:50 Height 5 ft 10 in Weight 250 lb BMI 35.9 Intake Visit Reasons: OV-LT MF laceration f/u DOI 11/23/24-w/xrays Intake Note: Fabian is a 44 year old left hand dominant male who presents today for a follow up/wound check of his Left Middle Finger Laceration and Distal Phalanx open fracture 11/23/24. This is a work related injury. We are continuing to manage this conservatively. At this time he was instructed to continue use of his finger splint when out of the house and was given a work note to return fullt time regular duty on 01/10/25. Today patient states he only has pain when pressure is applied at his volar aspect of palm. Allergies Sulfa (Sulfonamide Antibiotics) (SULFA (SULFONAMIDE ANTIBIOTICS)) Allergy (Unknown, Verified 02/08/25 12:50) SWELLING HPI HPI OV-LT MF laceration f/u DOI 11/23/24-w/xrays: Details: Fabian is a 44 year old left hand dominant man who returns for a left open middle finger distal phalanx fracture. He is S/P laceration & open fracture at his job, DOI: 11/23/24. He was seen by work connections & sutured. The pain in his middle finger is improving and his sensation is now more normal to the tip of his finger. He has some pain over the middle finger proximal phalanx with heavy activities, primarily at work. He is happy with his healing progress. 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 He says this is going well, he has been sorting boxed at his work. 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 Review of Systems Const All systems reviewed & are unremarkable except as noted in HPI and below Physical Exam Vital Signs: BMI result Body Mass Index 35.9 Const General: no acute distress and alert Orientation/consciousness: patient oriented x3 Neuro General: patient oriented x3 Extrem Other: Evaluation of Left Upper Extremity: The patient is alert, oriented, and in no acute distress Neuro: Diminished sensation to the tip of the middle finger still improving from prior, intact sensation to the pad of the finger Normal sensation to all other digits Vascular: Cap refill brisk ROM: He can make a fist and extend all her digits Fracture site non-tender No erythema or evidence of infection There is a new nail growing from beneath the main portion of the eponycheal fold There is a hard piece of tissue at the for ulnar side, which may be a piece of new nail coming in separately from the main nail Radiographs: 3 views of the left hand were taken and viewed by me today in clinic. 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 Seen at [facility] - 4 simple sutures placed.) Code(s): S61.213A - Laceration without foreign body of left middle finger without damage to nail, initial encounter Category: Medical (3) Nail deformity: Code(s): L60.8 - Other nail disorders Category: Medical Plan Assessment & Plan: 1. Left middle finger distal phalanx fracture, open, comminuted, displaced S/P injury, DOI: 11/23/24 This is a work-related injury 2. Left middle finger laceration Involving the nail bed S/P injury, DOI: 11/23/24 This is a work-related injury 3. Left middle finger nail bed injury Possible nail deformity forming If becomes problematic may need an ablation of the ulnar portion of the germinal matrix. This is a new problem I educated him about this condition I discussed activity modifications, he is to use his hand for normal activities He will continue to work on ROM exercises at home He will discontinue his splint at this time. I explained the effects of smoking on wound/bone healing. They expressed understanding. He works as a supervisor instrument mechanics, and has been working full duty for the last 4 weeks He will continue to work full duty without restrictions He will follow up in 6-8 weeks to see how his nail is growing in. No X-rays needed. Scribed for Radha Martins MD by King Duncan, medical service representative, on 02/08/25 at 1:05 PM, EST. Orders: Orders XR hand LT min 3V Today M79.642 - Pain in left hand Coding Level of Care Code Est Pt Level 3 (91885) Diagnoses Open fracture of distal phalanx of left middle finger S62.633B Laceration of left middle finger S61.213A Nail deformity L60.8
[2025-02-08 12:50] VITALS: BMI 35.9
== END 2025-02-08 13:28 | disposition home or self-care (01) ==
LOC: HO.HOS 12:21
PROVIDERS: Visit Provider Orthopaedic Surgery
DX: S62.633B Displaced fracture of distal phalanx of left middle finger, initial encounter for open fracture (principal); S61.213A Laceration without foreign body of left middle finger without damage to nail, initial encounter; L60.8 Other nail disorders
CPT/HCPCS: 99213

== ENCOUNTER → 2025-02-08 12:21 | Outpatient (BNVA) | payer OTHER, SELFPAY | PROVIDERS: Visit Provider Orthopaedic Surgery | DX: S62.633D Displaced fracture of distal phalanx of left middle finger, subsequent encounter for fracture with routine healing (principal); S61.213D Laceration without foreign body of left middle finger without damage to nail, subsequent encounter; L60.8 Other nail disorders | CPT/HCPCS: 99212 ==

== ENCOUNTER → 2025-02-08 13:05 | Outpatient (BNV) | payer OTHER, SELFPAY | PROVIDERS: Visit Provider Radiology Diagnostic Radiology | DX: S62.632D Displaced fracture of distal phalanx of right middle finger, subsequent encounter for fracture with routine healing (principal) | CPT/HCPCS: 73130 ==

== ENCOUNTER 2025-02-09 11:53 | Outpatient (REF) | payer OTHER, SELFPAY ==
--- NOTE | ~2025-02-09 | XR_ITS ---
EXAMINATION: XR HAND, LEFT CLINICAL INFORMATION: M79.642 - Pain in left hand COMPARISON: 01/05/2025, 12/08/2024, 11/24/2024. TECHNIQUE: PA, lateral, and oblique views of the left hand. FINDINGS: Redemonstration of comminuted fracture of the tuft of the distal phalanx of the third digit. Alignment is stable. Fracture lines are still visible however are mildly sclerotic. There is some subtle early periosteal new bone formation present suggesting healing. Remainder of the bones and joints of the left hand appear normal. No soft tissue abnormalities. XR/XR hand LT min 3V IMPRESSION: Early healing of the comminuted tuft fracture of the distal phalanx of the third digit. Electronically signed by: Rell Matias MD 02/08/2025 01:22 PM EDT
== END 2025-02-09 11:54 | disposition home or self-care (01) ==
LOC: HO.HOSX 11:53
PROVIDERS: Visit Provider Orthopaedic Surgery
DX: M79.642 Pain in left hand (principal)
CPT/HCPCS: 73130

== ENCOUNTER 2025-04-05 12:43 | Outpatient (AMB) | payer OTHER, SELFPAY ==
--- NOTE | 2025-04-05 12:48 | MHC.OFFVIS ---
Vital Signs 04/05/25 12:49 Height 5 ft 10 in Weight 250 lb BMI 35.9 Intake Visit Reasons: OV-LT MF laceration f/u DOI 11/23/24-eval nail Intake Note: Fabian is a 44 year old left hand dominant male who presents today for a follow up/wound check of his Left Middle Finger Laceration and Distal Phalanx open fracture 11/23/24. This is a work related injury. At his last visit with Dr Martins he was advise to discontinue use of splint and to work on his ROM. 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 Today patient states he is doing very well however he is still getting hangnails on his left middle finger. STates he has removed them 2x but they grow right back. Allergies Sulfa (Sulfonamide Antibiotics) (SULFA (SULFONAMIDE ANTIBIOTICS)) Allergy (Unknown, Verified 04/05/25 12:56) SWELLING HPI HPI OV-LT MF laceration f/u DOI 11/23/24-eval nail: Details: Fabian is a 44 year old left hand dominant man who returns for evaluation of his left middle finger nail deformity. He reports that most of his nail has grown in well, but there is a small portion on the ulnar side of the nail that is growing out a separate small piece of nail that is again separate from the main part of the nail. He would like to have it removed permanently. He is status post a left open middle finger distal phalanx fracture, which is the cause of this nail deformity. He is S/P laceration & open fracture at his job, DOI: 11/23/24. He is here for a nail evaluation. He says he is doing very well overall, but he continues to grow nail horns from the ulnar side of his middle finger. he says he has removed his nail twice at home since his last appointment, but it continues to regrow. 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 ROM: He can make a fist and extend all his digits Ulnar aspect of the nailbed appears that a small piece of nail not connected to the main nail is growing in. Ulnar ~3-4mm The rest of the nail plate appears to be growing in in good condition. Radiographs: 3 views of the left hand from 02/08/2025 were viewed by me today in clinic. They show a displaced, comminuted fracture of the distal phalanx of the left middle finger with satisfactory fracture alignment and good evidence of interval bony healing Psych Appearance: grossly normal Affect: normal affect Attitude: cooperative Assessment & Plan Assessment & Plan (1) Nail deformity: Code(s): L60.8 - Other nail disorders Category: Medical Plan Assessment & Plan: 1. Left middle finger nail deformity Ulnar ~3-4mm of nail I educated him about this condition I discussed operative and non-operative treatment options The patient would like to proceed with surgery The risks and benefits of operative treatment were discussed with the patient and the patient wishes to proceed with surgery. These risks include, but are not limited to risk of damage to blood vessels, nerves, tendons, infection, recurrence, incomplete relief of preoperative symptoms, persistent pain, possible need for further surgery and the risks associated with regional blocks and anesthesia. The plan is to take the patient to the operating room sometime in the next few weeks for the following procedures: 1. Left middle finger partial nailbed removal including part of the germinal matrix, under local All of the preoperative paperwork including the consent was reviewed today. All the patient's questions were answered. The patient understands that they will be contacted by our project scheduler soon to schedule this procedure He denies Diabetes, blood thinners, asthma, heart, lung, kidney issues 2. Left middle finger distal phalanx fracture, open, comminuted, displaced S/P injury, DOI: 11/23/24 This is a work-related injury Healed 3. Left middle finger laceration Involving the nail bed S/P injury, DOI: 11/23/24 This is a work-related injury Healed Please note that greater than 30 minutes was spent with this patient going over the history, evaluating the patient and radiographs, formulating possible treatment options, discussing them with the patient, and documenting the visit. Scribed for Radha Martins MD by King Duncan, medical transcription supervisor, on 04/05/25 at 1:05 PM, EST. Coding Level of Care Code Est Pt Level 4 (41015) Diagnoses Nail deformity L60.8
[2025-04-05 12:49] VITALS: BMI 35.9
== END 2025-04-05 13:36 | disposition home or self-care (01) ==
LOC: HO.HOS 12:44
PROVIDERS: Visit Provider Orthopaedic Surgery
DX: L60.8 Other nail disorders (principal)
CPT/HCPCS: 99214

== ENCOUNTER → 2025-04-05 12:43 | Outpatient (BNVA) | payer OTHER, SELFPAY | PROVIDERS: Visit Provider Orthopaedic Surgery | DX: L60.8 Other nail disorders (principal) | CPT/HCPCS: 99212 ==

== ENCOUNTER 2025-04-25 06:56 | Day surgery (SDC) | payer OTHER, SELFPAY ==
--- NOTE | 2025-04-25 08:13 | MHC.SHP ---
Pre-Procedural Eval Section A - 24 Hr Update-Section A only Date of Service: 04/25/25 The patient is an INPATIENT: No Changes since office visit: No Cold of Flu in the past 2 weeks, No New Medical Problems, No Changes in Medication and No Patient answered all questions The patient has been examined within 24 hours of the surgical procedure. The History & Physical has been completed within 30 days and I have reviewed it.: Yes Section B - Complete if H&P > 30 days Chief Complaint: Other nail disorders Allergies: Allergies Allergy/AdvReac Type Severity Reaction Status Date / Time Sulfa (Sulfonamide Allergy Unknown SWELLING Verified 04/05/25 12:56 Antibiotics) (SULFA (SULFONAMIDE ANTIBIOTICS)) Plan Diagnosis/Plan: Unchanged I have reviewed the history and physical and performed a pertinent physical examination on my patient. No changes have occurred unless specified. Time Spent With Patient Time: Total time managing care of this patient today ____ minutes.
--- NOTE | 2025-04-25 08:13 | W.PM.OPN ---
Operative Note Operative Note Date of Service: 04/25/25 Narrative: Operative Note Preop diagnosis: 1. Left middle finger nail deformity Postop diagnosis: same Procedure: 1. Left middle finger removal of small separate part of nail plate, partial ablation of ulnar aspect of nail germinal matrix to prevent regrowth. Surgeon: Radha Martins MD [employer] Business Teacher: None Anesthesia: digital block using 1% lidocaine with epinephrine Findings: Nail deformity on ulnar aspect of left middle finger nail EBL: Less than 5 mL Tourniquet time: None Specimens: Left middle finger portion of the nail plate and germinal matrix Complications: None Disposition: Brought to recovery room in stable condition Plan: Follow-up for 7-10 days for wound check and suture removal and to check pathology Indications: The patient is 45 years old, with left middle finger nail deformity following a crush injury and tuft fracture . The risks and benefits of operative treatment including but not limited to risk of damage to blood vessels, nerves, tendons, infection, persistent pain, persistent symptoms, recurrence or possible need for additional surgery were discussed with the patient and the patient wishes to proceed with surgery. Procedure: Once consent was obtained a digital block was performed in the preop area using a combination of 1% lidocaine with epinephrine. The patient was then brought back to the operating suite and placed on the operative table in supine position. The left upper extremity was prepped and draped in a standard surgical fashion. A finger tourniquet was applied to the base of the left middle finger for fewer than 20 minutes. Once assured that we had a good block, I made a longitudinal incision extending back from the nail horn on the ulnar aspect of the fingernail. Incision was made through the skin to the subcutaneous tissues. I then used a 15. Blade to excise some of the tissue presumed to be germinal matrix at the base of the small portion of nail plate that was growing separate from the main portion of the fingernail. This is removed and placed on the back table to be sent for histopathology. I then used a 15. Blade and some iris scissors to further excise some of the tissue at the base of where this piece of finger nail was growing. I also used a small rongeur. Once satisfied the wound was irrigated normal saline. The finger tourniquet was removed and the wound was copiously irrigated with normal saline and hemostasis was obtained with a brief period of local pressure. The skin edges were reapproximated with some 5.0 nylon suture material and a sterile dressing was applied. The patient appears to have tolerated the procedure well and with no complications. All digits were well vascularized at the conclusion of the case.
[2025-04-25 08:16] VITALS: BMI 35.9
[2025-04-25 08:21] VITALS: BP 155/82; PULSE 87; RESP 18; TEMP 36.2; O2SAT 96
[2025-04-25 10:21] VITALS: BP 133/80; PULSE 84; O2SAT 98
== END 2025-04-25 10:22 | disposition home or self-care (01) ==
PROVIDERS: Visit Provider Orthopaedic Surgery
PROC: (CPT 11750; principal; 2025-04-25 08:50)
DX: L60.8 Other nail disorders (principal); Z87.828 Personal history of other (healed) physical injury and trauma; Z88.2 Allergy status to sulfonamides; Z90.49 Acquired absence of other specified parts of digestive tract; F17.210 Nicotine dependence, cigarettes, uncomplicated; Z98.890 Other specified postprocedural states
CPT/HCPCS: 11750; 88304; 88311; 88312; J0165; J2003

== ENCOUNTER → 2025-04-25 06:56 | Outpatient (BNV) | payer OTHER, SELFPAY | PROVIDERS: Visit Provider Orthopaedic Surgery | DX: L60.8 Other nail disorders (principal) | CPT/HCPCS: 11750 ==

== ENCOUNTER 2025-05-10 12:45 | Outpatient (AMB) | payer OTHER, SELFPAY ==
--- NOTE | 2025-05-10 12:58 | A.OFFVIS_ITS ---
Vital Signs 05/10/25 13:03 Height 5 ft 10 in Weight 250 lb BMI 35.9 Intake Visit Reasons: PO LT MF partial nail bed ablation 04/25/25 AR Intake Note: Fabian is a 45 year old left hand dominant male who presents today for his first post operative visit s/p left middle finger nail bed partial ablation, DOS: 04/25/[address] Martins. Hx of left middle finger laceration & distal phalanx open fracture 11/23/24. This is a work related injury. Today patient reports that he is doing well, he denies any pain or discharge. Allergies Sulfa (Sulfonamide Antibiotics) (SULFA (SULFONAMIDE ANTIBIOTICS)) Allergy (Unknown, Verified 05/10/25 13:02) SWELLING HPI HPI PO LT MF partial nail bed ablation 04/25/25 AR: Details: Fabian is a 45 year old left hand dominant male who presents today for his first post operative visit s/p left middle finger nail bed partial ablation, DOS: 04/25/[address] Martins. Hx of left middle finger laceration & distal phalanx open fracture 11/23/24. This is a work related injury. Today patient reports that he is doing well, he denies any pain or discharge. Patient reports no recurrence of symptoms of the ?hang nail? he was experiencing before surgery. 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 Neuro: Normal sensation of the tips of all digits of the left hand at this time Vascular: Cap refill brisk Pain: No tenderness to palpation about incision site on the dorsal left middle finger around nail at bed and eponychial fold ROM: Patient was able to make a closed fist and extend all digits of the left hand fully Skin: Well approximated and well healing incision site noted on radial aspect of distal left middle finger Sutures in place No lacerations or abrasions. General: No ecchymosis, erythema, or evidence of infection. 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 Seen at [facility] - 4 simple sutures placed.) Code(s): S61.213A - Laceration without foreign body of left middle finger without damage to nail, initial encounter Category: Medical (3) Nail deformity: Code(s): L60.8 - Other nail disorders Category: Medical Plan 1. Status post left middle finger partial nail bed excision DOS 04/25/2025 Patient appears to be recovering well postoperatively Patient is educated about the typical recovery course No under water times one-week, 2 lb weight limit x2 weeks Given patient's history of nail horn development after open fracture and laceration of left middle finger, I do feel it was best to follow-up the patient in 2 weeks to make sure that this surgery has been effective for him Patient is educated and worrisome signs and symptoms, and should call us if they experience any of these, including but not limited to redness, swelling, increased pain, and discharge Patient was sent back to work Friday with a 2 lb weight limit until follow-up Patient understands this and is amenable to this plan Follow-up in 2 weeks for reassessment, sooner with any acute concerns Coding Level of Care Code Global (91284) Diagnoses Open fracture of distal phalanx of left middle finger S62.633B Laceration of left middle finger S61.213A Nail deformity L60.8
[2025-05-10 13:03] VITALS: BMI 35.9
== END 2025-05-10 13:27 | disposition home or self-care (01) ==
LOC: HO.HOS 12:46
DX: S62.633B Displaced fracture of distal phalanx of left middle finger, initial encounter for open fracture (principal); S61.213A Laceration without foreign body of left middle finger without damage to nail, initial encounter; L60.8 Other nail disorders
CPT/HCPCS: 99024

== ENCOUNTER → 2025-05-10 12:45 | Outpatient (BNVA) | payer OTHER, SELFPAY | DX: S61.213D Laceration without foreign body of left middle finger without damage to nail, subsequent encounter (principal); S62.633D Displaced fracture of distal phalanx of left middle finger, subsequent encounter for fracture with routine healing; Z98.890 Other specified postprocedural states; L60.8 Other nail disorders; F17.210 Nicotine dependence, cigarettes, uncomplicated | CPT/HCPCS: 99212 ==